=== PATIENT | male | born 1980 | race Caucasian/White ===

== ENCOUNTER 2018-07-07 13:52 | Emergency (ER) | payer BC ==
[~2018-07-07] VITALS: Ht 182.9 cm; Wt 77.1 kg
[2018-07-07 14:00] VITALS: BP 168/96
[2018-07-07] MEDS ORDERED: TYLENOL EXTRA500 MG PO (14:03)
[2018-07-07] MEDS ORDERED: IBUPROFEN 800800 M1 PO ×2 (14:03→14:18)
[2018-07-07] MEDS ORDERED: CLEOCIN HCL300 MG PO (14:18)
[2018-07-07] MEDS ORDERED: NORCO 5-325 TA1 EAC1 PO (14:18)
== END 2018-07-07 14:26 | disposition home or self-care (01) ==
LOC: M.ERS 13:52
DX: K04.7 Periapical abscess without sinus (principal); Z90.49 Acquired absence of other specified parts of digestive tract; Z88.0 Allergy status to penicillin; Z88.2 Allergy status to sulfonamides

== ENCOUNTER 2018-09-30 06:35 | Emergency (ER) | payer OTHER, BC ==
[~2018-09-30] VITALS: Ht 182.9 cm; Wt 79.4 kg
[~2018-09-30 06:35] MED LIST: CLEOCIN HCL300 MG PO; IBUPROFEN 800800 M1 PO; NORCO 5-325 TA1 EAC1 PO; TYLENOL EXTRA500 MG PO
[2018-09-30] MEDS ORDERED: CLEOCIN HCL150 MG PO (07:46)
[2018-09-30] MEDS ORDERED: MUPIROCIN22 GM TOP (07:46)
[2018-09-30 07:55] VITALS: BP 118/72
== END 2018-09-30 07:55 | disposition home or self-care (01) ==
LOC: M.ERS 06:35
DX: L02.416 Cutaneous abscess of left lower limb (principal); Z88.0 Allergy status to penicillin; Z88.2 Allergy status to sulfonamides; Z90.49 Acquired absence of other specified parts of digestive tract

== ENCOUNTER → 2019-01-21 | Outpatient (CLI) | payer OTHER, BC ==
[~2019-01-21] MED LIST changes: +CLEOCIN HCL150 MG PO; +MUPIROCIN22 GM TOP
== END ==
LOC: M.RAD 08:05
DX: M40.46 Postural lordosis, lumbar region (principal); M43.8X6 Other specified deforming dorsopathies, lumbar region; M25.561 Pain in right knee

== ENCOUNTER → 2019-01-31 | Outpatient (CLI) | payer OTHER, BC | LOC: M.MRI 06:34 | DX: S83.241A Other tear of medial meniscus, current injury, right knee, initial encounter (principal); M47.817 Spondylosis without myelopathy or radiculopathy, lumbosacral region; M51.37 Other intervertebral disc degeneration, lumbosacral region; M51.27 Other intervertebral disc displacement, lumbosacral region; M48.07 Spinal stenosis, lumbosacral region; X58.XXXA Exposure to other specified factors, initial encounter; Y93.89 Activity, other specified; Y92.89 Other specified places as the place of occurrence of the external cause; Y99.8 Other external cause status ==

== ENCOUNTER → 2019-12-17 | Outpatient (CLI) | payer OTHER | LOC: M.ULTRA 10:21 | PROVIDERS: ATTEND Nurse Practitioner Family | DX: M79.605 Pain in left leg (principal) ==

== ENCOUNTER 2020-08-26 08:26 | Observation (INO) | payer OTHER ==
[~2020-08-26] VITALS: Ht 182.9 cm; Wt 90.7 kg
[2020-08-26 08:35] VITALS: BP 149/85
[2020-08-26] MEDS ORDERED: THYROID MED (08:37)
[2020-08-26] MEDS ORDERED: FENOFIBRATE160 MG PO (08:37)
[2020-08-26 08:51] LABS: ABSOLUTE EOSINOPHILS 0.1 thou/uL (0.0-0.7); ABSOLUTE LYMPHOCYTES 1.5 thou/uL (0.8-5.3); ABSOLUTE MONOCYTES 0.4 thou/uL (0.0-1.2); ABSOLUTE NEUTROPHILS 2.3 thou/uL (1.6-8.1); BASOPHILS 0.9 %; EOSINOPHILS 2.4 %; HEMATOCRIT 45.8 % (42.0-52.0); HEMOGLOBIN 15.6 gm/dL (14.0-18.0); LYMPHOCYTES 33.8 %; MCH 32.5 pg (26.0-34.0); MCHC 34.1 g/dL (28.0-37.0); MCV 95.1 fL (80.0-100.0); MONOCYTES 9.4 %; MPV 7.3 fl. (7.2-11.1); NUCLEATED RBCS 0 /100WBC; PLATELET COUNT* 303 thou/uL (150-400); POLYS 53.5 %; RBC 4.81 mil/uL (4.50-6.00); RDW-CV 13.2 % (10.5-14.5); WBC 4.4 thou/uL (4.0-11.0)
[2020-08-26 09:00] LABS: CALCIUM 9.1 mg/dL (8.5-10.1); POTASSIUM 3.7 mmol/L (3.5-5.1)
[2020-08-26 09:03] LABS: APTT 28.4 Seconds (25.0-31.3); PROTIME 11.1 Seconds (9.20-11.50)
[2020-08-26 09:10] LABS: ALBUMIN 4.2 g/dL (3.4-5.0); MAGNESIUM 1.7 mg/dL (1.8-2.4); TOTAL BILIRUBIN 0.5 mg/dL (<0.1-1.0); TOTAL PROTEIN 8.6 g/dL (6.4-8.2)
[2020-08-26 14:41] VITALS: BP 125/75
[2020-08-26 14:44] VITALS: BP 131/86
--- NOTE | 2020-08-26 14:47 | EKG ---
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 : 1980 Requested By: Herbert Hubbard Order Number: [id number] MD: Michoacano Gibson Measurements Intervals [place] Rate: 89 P: 55 AL: 161 QRS: 7 QRSD: 96 T: 3 QT: 365 QTc: 445 Interpretive Statements Sinus rhythm Minimal ST depression, lateral leads No previous ECG available for comparison Electronically Signed On 08-26-2020 14:47:33 CDT by Michoacano Gibson [email or web address] <ELECTRONICALLY SIGNED> By: Michoacano Gibson MD, [facility] 08/26/20 1447 0832 0832 Michoacano Gibson MD, [facility] /EPI
--- NOTE | 2020-08-26 14:49 | EKG ---
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
[2020-08-26] MEDS ORDERED: LEVO-T50 MCG PO (15:02)
--- NOTE | 2020-08-26 15:26 | NUR ---
RECIEVED REPORT FROM MIGUEL CRESPO IN ER OF EXPECTED ADMIT AT 1420- DX: CHEST PAIN- PT ARRIVED TO ROOM 228 VIA CART, SBA TO BED- JUVENILE COUNSELOR PLACED ORDERED, TRACING SR- VSS- PT A&O X4- CONT OF BOWEL AND BLADDER- UP AD-MUSHTAQ, STEADY GAIT NOTED- LCTA, RESP EVEN AND UN-LABORED- ABD SOFT/ROUND/NON-TENDER, BS X4 QUADS- LAST BM REPORTED 08/25/20- IV NOTED TO LEFT AC INTACT AND SL- PT DENIES AND C/O PAIN AT TIME OF ADMISSION- DENIES ANY OPEN SOARS/WOUNDS- CARDIO CONSULT NOTED- CALL LIGHT AND PERSONAL BELONGINGS WITH IN REACH- ALL NEEDS MET AT THIS TIME
[2020-08-26 16:00] VITALS: BP 143/100
[2020-08-26 20:00] VITALS: BP 121/78
[2020-08-27 00:29] VITALS: BP 104/62
[2020-08-27 04:00] VITALS: BP 104/63
[2020-08-27 05:02] LABS: HEMATOCRIT 42.9 % (42.0-52.0); HEMOGLOBIN 14.6 gm/dL (14.0-18.0); MCH 32.8 pg (26.0-34.0); MCHC 34.1 g/dL (28.0-37.0); MPV 7.4 fl. (7.2-11.1); RBC 4.47 mil/uL (4.50-6.00); RDW-CV 13.3 % (10.5-14.5); WBC 4.6 thou/uL (4.0-11.0)
[2020-08-27 05:18] LABS: ANION GAP 7 mmol/L (7-16); CALCIUM 9.4 mg/dL (8.5-10.1); CHLORIDE 104 mmol/L (98-107); CHOLESTEROL 158 mg/dL (<200); CO2 32 mmol/L (21-32); GLUCOSE 101 mg/dL (70-99); HDL CHOLESTEROL 43 mg/dL (>40); LDL CHOLESTEROL 72 mg/dL (<100); POTASSIUM 4.4 mmol/L (3.5-5.1); SODIUM 143 mmol/L (136-145); TC:HDL 3.7 Ratio (Not establshd); TRIGLYCERIDE 215 mg/dL (<150); TROPONIN-I LEVEL <0.06 ng/mL (<0.06); VLDL 43 mg/dL (<40)
[2020-08-27 05:19] LABS: SERUM ASSESSMENT CLEAR
[2020-08-27 05:24] LABS: BUN 12 mg/dL (7-18)
--- NOTE | 2020-08-27 07:10 | NUR ---
CHANGE OF SHIFT BEDSIDE REPORT GIVEN PATIENT SEEN AT BEDSIDE IN BED ASLEEP ASSUMED PATIENT CASRE
[2020-08-27 08:00] VITALS: BP 128/82
--- NOTE | 2020-08-27 10:24 | NUR ---
CM SPOKE TO THE PT TO DISCUSS CM ASSESSMENT. PT A&O, INDEPENDENT WITH ADL'S, ACTIVE AND WOKS OUTSIDE THE HOME. PT USES 0 DME. NO CM D/C PLANNING NEEDS ANTICIPATED. CM WILL REMAIN AVAILABLE TO ASSIST AND FOLLOW NEEDED.
[2020-08-27 12:00] VITALS: BP 143/85
--- NOTE | 2020-08-27 13:03 | 2DMMODE ---
[place] [address] 2 D/M-MODE ECHOCARDIOGRAM Name: MARCE QUINTANILLA Room: [address] Shilo Boogie#: [id number] Admission: 08/26/20 Attend Phys: Maxwell Salvador Discharge: Date of : 76 Date of Service: 08/27/20 1303 Report #: [id number] THIS REPORT FOR: cc: Alexey Colindres Robin L. FNP Blick, David R. MD [facility] ~ APPROVED REPORT Study performed: 08/27/2020 10:34:06 EXAM: Comprehensive 2D, Doppler, and color-flow Echocardiogram Patient Location: In-Patient Room #: 228 Status: routine BSA: 2.13 HR: 52 bpm BP: 128/82 mmHg Rhythm: NSR Other Information Study Quality: Good Indications Chest Pain 2D Dimensions IVSd: 10.18 (7-11mm) LVOT Diam: 21.85 (18-24mm) LVDd: 45.51 mm PWd: 8.87 (7-11mm) Ascending Ao: 36.57 (22-36mm) LVDs: 26.86 (25-40mm) Aortic Root: 37.80 mm Volumes Left Atrial Volume (Systole) LA ESV Index: 22.20 mL/m2 Aortic Valve AoV Peak Jace.: 1.23 m/s AO Peak Gr.: 6.04 mmHg LVOT Max P.90 mmHg AO Mean Gr.: 3.31 mmHg LVOT Mean P.49 mmHg LVOT Max V: 1.11 m/s AO V2 VTI: 24.58 cm LVOT Mean V: 0.73 m/s TIM (VTI): 3.62 cm2 LVOT V1 VTI: 23.71 [place] [address] 2 D/M-MODE ECHOCARDIOGRAM Name: MARCE QUINTANILLA Room: [address]RDomonique#: [id number] Admission: 08/26/20 Attend Phys: Maxwell Salvador Discharge: Date of : 76 Date of Service: 08/27/20 1303 Report #: [id number] Mitral Valve E/A Ratio: 1.31 MV Decel. Time: 211.34 ms MV E Max Jcae.: 0.53 m/s MV PHT: 61.29 ms MVA (PHT): 3.59 cm2 TDI E/Lateral E': 3.31 E/Medial E': 5.30 Medial E' Jace.: 0.10 m/s Lateral E' Jace.: 0.16 m/s Pulmonary Valve PV Peak Jace.: 0.94 m/s PV Peak Gr.: 3.52 mmHg Left Ventricle The left ventricle is normal size. There is normal LV segmental wall motion. There is normal left ventricular wall thickness. Left ventricular systolic function is normal. The left ventricular ejection fraction is within the normal range. LVEF is 55-60%. The left ventricular diastolic function is normal. Right Ventricle The right ventricle is normal size. The right ventricular systolic function is normal. Atria The left atrium size is normal. The right atrium size is normal. Aortic Valve The aortic valve is normal in structure. No aortic regurgitation is present. There is no aortic valvular stenosis. Mitral Valve The mitral valve is normal in structure. Trace mitral regurgitation. No evidence of mitral valve stenosis. Tricuspid Valve The tricuspid valve is normal in structure. Trace tricuspid regurgitation. Unable to assess PA pressure. Pulmonic Valve The pulmonary valve is normal in structure. [place] [address] 2 D/M-MODE ECHOCARDIOGRAM Name: MARCE QUINTANILLA Room: [address] Chuyita#: [id number] Admission: 08/26/20 Attend Phys: Maxwell Salvador Discharge: Date of : 76 Date of Service: 08/27/20 1303 Report #: [id number] Great Vessels The aortic root is normal in size. IVC is normal in size and collapses >50% with inspiration. Pericardium There is no pericardial effusion. <Conclusion> Left ventricular systolic function is normal. The left ventricular ejection fraction is within the normal range. <ELECTRONICALLY SIGNED> By: Michoacano Gibson MD, FACC 08/27/20 1303 1303 1303 Michoacano Gibson MD, FAC /INF
[2020-08-27 16:00] VITALS: BP 125/85
--- NOTE | 2020-08-27 16:54 | CARDNUC ---
[place] [address] CARDIAC NUCLEAR IMAGING REPORT Name: JERSEY QUINTANILLA Room: [address] M.R.#: [id number] Admission: 08/26/20 Attend Phys: Maxwell Salvador Discharge: Date of : 76 Date of Service: 08/27/20 1653 Report #: [id number] THIS REPORT FOR: cc: Alexey Colindres Robin L. FNP Liston, Michael J. MD [facility] ~ APPROVED REPORT Imaging Protocol: Stress Tc-99m/Rest Tc-99m 1 day Study performed: 08/26/2020 15:39:00 Indication: Chest pain Patient Location: In-Patient Room #: 228 Stress Tech: Pooja Guerra Stress Nurse: Josselyn San RN Ht: 6 ft 0 in Wt: 200 lbs BSA: 2.13 m2 BMI: 27.12 Medical History Medical History: HTN Medications: amlodipine Allergies: pcn, sulfa Cardiac Risk Factors: HTN Exercise History: Physically active Resting Data Rest SPECT myocardial perfusion imaging was performed in supine position 30 minutes following the intravenous injection of 10.2 mCi of Tc-99m Sestamibi. Time of rest injection: 12:25 The images were gated to evaluate regional wall motion and calculate left ventricular ejection fraction. Administration Route: IV Administration Site: Right AC Exercise Stress At peak stress, the patient was injected intravenously with 35.5mCi of Tc-99m Sestamibi. Time of stress injection: 13:50 Administration Route: IV Administration Site: Right AC Heart Rate at time of stress injection: 179 [place] [address] CARDIAC NUCLEAR IMAGING REPORT Name: JERSEY QUINTANILLA [address]: [address]#: [id number] Admission: 08/26/20 Attend Phys: Maxwell Salvador Discharge: Date of : 76 Date of Service: 08/27/20 1653 Report #: [id number] Patient continued to exercise for 1 minute(s). Gated Stress SPECT was performed 30 minutes after stress injection. The images were gated to evaluate regional wall motion and calculate left ventricular ejection fraction. Prone imaging was performed. Stress Test Details Stress Test: Exercise stress testing was performed using a Ted protocol. HR Max Heart Rate (APMHR): 179 bpm Resting HR: 69 bpm Target HR (85% APMHR): 152 bpm Max HR Achieved: 179 bpm % of APMHR: 100 Recovery HR: 92 bpm BP Resting BP: 136/96 mmHg Max BP: 189/77 mmHg Recovery BP: 126/85 mmHg ECG Resting ECG: Sinus Rhythm Stress ECG: Sinus Tachycardia ST Change: None Arrhythmia: None Recovery ECG: Sinus Rhythm Recovery ST Change: None Recovery Arrhythmia: None Clinical Reason for Termination: Maximal effort, Dyspnea, Fatigue Exercise duration: 10 min 44 sec Exercise capacity: 13.02 METs Overall Exercise Capacity for Age: Normal Functional Aerobic Impairment 100% The patient exhibited good exercise tolerance. The patient tolerated the standard Ted protocol with no significant cardiac symptoms. Stress ECG Conclusion The baseline twelve-lead EKG shows sinus rhythm without significant ST segment or T wave abnormality. EKGs obtained during and post exercise show sinus rhythm and sinus tachycardia with no significant ST segment or T wave changes when compared to baseline. There were no stress[place] [address] CARDIAC NUCLEAR IMAGING REPORT Name: SOCORROJERSEY Gilberto Room: [address] Chuyita#: [id number] Admission: 08/26/20 Attend Phys: Maxwell Salvador Discharge: Date of : 76 Date of Service: 08/27/20 1653 Report #: [id number] Study Quality Study: Good Artifact: No artifact Study Data At rest, the left ventricular ejection fraction was 61%.. Post stress, the left ventricular ejection was 61%.. TID = 0.96. Perfusion Perfusion images obtained at rest and post exercise stress show uniform uptake of the radioisotope throughout the myocardium. There were no defects to suggest infarct or ischemia. Wall Motion Normal left ventricular wall motion. Nuclear Conclusion ECG Findings: negative for ischemia Clinical Findings: negative for ischemia Nuclear Findings: negative for ischemia Exercise Capacity: normal Left Ventricular Function: normal Risk Study: low Perfusion study show no defect to suggest infarct or ischemia. Left ventricular systolic function appears normal on gated studies. This is a low risk study. <Conclusion> The baseline twelve-lead EKG shows sinus rhythm without significant ST segment or T wave abnormality. EKGs obtained during and post exercise show sinus rhythm and sinus tachycardia with no significant ST segment or T wave changes when compared to baseline. There were no stress-induced arrhythmias. <ELECTRONICALLY SIGNED> By: Jersey Blanco MD, FACC 08/27/20 [phone] Jersey Blanco MD, FACC /INF
[2020-08-27] MEDS ORDERED: NORVASC5 MG PO (17:28)
--- NOTE | 2020-08-27 17:31 | CON ---
[address] [address] CONSULTATION Name: JERSEY QUINTANILLA Room: [address] Shilo Boogie#: [id number] Admission: 08/26/20 Attend Phys: Maxwell Man, Discharge: Date of : 76 Report #: [id number] THIS REPORT FOR: cc: Alexey Colindres Robin L. FNP ~ Jersey Blanco MD [facility] DATE OF SERVICE: 08/26/2020 INDICATION: Chest pain. HISTORY OF PRESENT ILLNESS: The patient is a very pleasant 39-year-old gentleman with no significant prior cardiac history with the exception of DVT/PE a year and a half ago after knee surgery for which he completed a course of anticoagulant. He was worked up for hypercoagulable state and nothing was found. He has had no recurrence. The patient noted left of sternal pain this morning at 6:30 while at work that radiated under the pectoralis muscle around to the left side, lasting a few minutes at a time described as somewhere between sharp and dull ache. There was no associated diaphoresis, nausea, vomiting or shortness of breath. There were no exacerbating or relieving factors. This has happened 10 or 12 times throughout the day. The patient was seen by his health care nurse at his place of employment and found to be tachycardic and hypertensive. The patient reported to the Emergency Room for further evaluation. In the Emergency Room, his initial blood pressure was 149/85 with a pulse rate of 101. EKG showed sinus rhythm with some very subtle ST-segment depression in leads V5 and V6. The followup EKG was unremarkable. Troponins have been less than 0.06 on 2 separate occasions thus far. At the time of interview, the patient was pain free. He is without other cardiac complaint at this time. 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 The patient completed the course of anticoagulation at that time. PAST SURGICAL HISTORY: He has had cholecystectomy. He has had jaw reconstructive surgery. He has had left arm fracture. ALLERGIES: PENICILLIN/SULFA. HOME MEDICATIONS: Fenofibrate 160 mg daily and thyroid replacement. SOCIAL HISTORY: The patient is a nonsmoker. He is . His is in attendance with him. He [place] [address] CONSULTATION Name: JERSEY QUINTANILLA Room: [address] Shilo Boogie#: [id number] Admission: 08/26/20 Attend Phys: Maxwell Man, Discharge: Date of : 76 Report #: [id number] REVIEW OF SYSTEMS: A 14-point review of systems as per HPI, otherwise unremarkable. PHYSICAL EXAMINATION: VITAL SIGNS: Blood pressure 131/86, pulse is 66 and regular. GENERAL: This is a pleasant gentleman who is in no distress. Mood and affect appropriate. HEENT: Extraocular muscles intact. Mucous membranes moist. NECK: Shows no jugular venous distention. CHEST: Reveals clear lung quick without wheezes or rales. CARDIOVASCULAR: Reveals a regular rhythm, normal S1 and S2. I do not appreciate gallop or murmur. ABDOMEN: Reveals normal bowel sounds. EXTREMITIES: Shows no edema. SKIN: Dry. LABORATORY DATA: A 12-lead EKG on arrival shows sinus rhythm with subtle ST segment or depression in leads V5 and V6. Followup EKG was unremarkable. Chest x-ray showed no acute abnormality. Labs were reviewed. Electrolytes are within normal limits. BUN and creatinine are within normal limits. LFTs are within normal limits. Troponin is less than 0.06 on 2 separate occasions. Coags are within normal limits. CBC is within normal limits. IMPRESSION AND RECOMMENDATIONS: 1. Atypical chest pain. The patient is ruled out for myocardial infarction. We will plan noninvasive stress testing and echocardiogram to further evaluate. Doubt this represents any type of clotting or pulmonary embolus as the patient's D-dimer is unremarkable. 2. Hypertension, presently stable. We will plan to start a low dose amlodipine as the patient has not had success and tolerating beta blockers in the recent past. 3. Tachycardia presently resolved, likely due to discomfort. The patient is stable on telemetry at this time. We will follow clinically. <ELECTRONICALLY SIGNED> By: Jersey Blanco MD, FACC 08/27/20 1731 1538 [id number] Blanco MD, FACC /nt
[2020-08-27] MEDS ORDERED: PROTONIX40 M4 PO (17:59)
[2020-08-27 18:05] VITALS: BP 125/85
--- NOTE | 2020-08-27 18:08 | NUR ---
discharge to home iv and heart monitor removed personal belongigns returned patient walked out with staff
== END 2020-08-27 18:15 | disposition home or self-care (01) ==
LOC: M.ERS 08:26 → M.TBA-ER 11:02 → M.2W 11:02
PROVIDERS: Emergency Medicine Emergency Medical Services; ADMIT Family Medicine; ATTEND Family Medicine
DX: R07.89 Other chest pain (principal); I10 Essential (primary) hypertension; R00.0 Tachycardia, unspecified; Z94.9 Transplanted organ and tissue status, unspecified; Z98.890 Other specified postprocedural states; Z87.891 Personal history of nicotine dependence; Z20.822 Contact with and (suspected) exposure to COVID-19; Z86.711 Personal history of pulmonary embolism; Z86.718 Personal history of other venous thrombosis and embolism